=== PATIENT | female | born 1950 | race Caucasian/White ===

== ENCOUNTER → 2017-03-04 | Outpatient (CLI) | payer OTHER | LOC: RAD 01:28 | DX: Z12.31 Encounter for screening mammogram for malignant neoplasm of breast (principal) ==

== ENCOUNTER → 2017-05-19 | Outpatient (CLI) | payer OTHER | LOC: RAD 10:11 | DX: S52.532A Colles' fracture of left radius, initial encounter for closed fracture (principal); X58.XXXA Exposure to other specified factors, initial encounter; Y93.89 Activity, other specified; Y92.89 Other specified places as the place of occurrence of the external cause; Y99.8 Other external cause status ==

== ENCOUNTER → 2018-01-13 | Outpatient (CLI) | payer OTHER | LOC: NUC 08:52 | DX: Z13.820 Encounter for screening for osteoporosis (principal); N91.2 Amenorrhea, unspecified; Z78.0 Asymptomatic menopausal state ==

== ENCOUNTER → 2018-07-03 | Outpatient (CLI) | payer OTHER | LOC: RAD 12:49 | DX: M47.812 Spondylosis without myelopathy or radiculopathy, cervical region (principal) ==

== ENCOUNTER → 2019-03-05 | Outpatient (CLI) | payer OTHER | LOC: RAD 09:01 | DX: Z12.31 Encounter for screening mammogram for malignant neoplasm of breast (principal) ==

== ENCOUNTER → 2020-03-07 | Outpatient (CLI) | payer OTHER | LOC: ULTRA 08:29 | PROVIDERS: ATTEND Internal Medicine | DX: Z12.31 Encounter for screening mammogram for malignant neoplasm of breast (principal); I82.890 Acute embolism and thrombosis of other specified veins; R76.0 Raised antibody titer; M85.80 Other specified disorders of bone density and structure, unspecified site; N95.8 Other specified menopausal and perimenopausal disorders; Z86.711 Personal history of pulmonary embolism ==